=== PATIENT | male | born 1960 | race Two or more races ===

== ENCOUNTER 2019-01-07 14:31 | Emergency (ER) | payer OTHER ==
[~2019-01-07] VITALS: Ht 167.6 cm; Wt 59.0 kg
[2019-01-07 14:48] VITALS: BP 136/95
[2019-01-07] MEDS ORDERED: NEOMYCIN-BACITRACIN-POLYM UNITDOSE PKG TOP OINT TOP ONE (17:21)
[2019-01-07] MEDS ORDERED: IBUPROFEN 800 MG TAB PO ONE (17:30)
[2019-01-07] MEDS ORDERED: NEOMYCIN-BACITRACIN-POLYM 15GM TOP OINT TOP SCH (22:00)
== END 2019-01-07 17:55 | disposition home or self-care (01) ==
LOC: ER 14:31
DX: T25.212A Burn of second degree of left ankle, initial encounter (principal); X12.XXXA Contact with other hot fluids, initial encounter; Y93.89 Activity, other specified; Y92.89 Other specified places as the place of occurrence of the external cause; Y99.8 Other external cause status
CPT/HCPCS: 16020